=== PATIENT | male | born 1970 | race American Indian/Alaskan Native ===

== ENCOUNTER 2018-07-04 08:20 | Outpatient (CLI) | payer MEDICAID ==
[2018-07-04] MEDS ORDERED: XYLOCAINE TOPICAL 4% TP ONE (08:48)
[2018-07-04] MEDS ORDERED: XYLOCAINE TOPICAL 4% TP NR (09:00)
[2018-07-04] MEDS ORDERED: SILVER NITRATE TP ONE (09:30)
== END 2018-07-04 08:21 | disposition home or self-care (01) ==
LOC: WOUND 08:20
PROVIDERS: ATTEND Surgery
DX: E11.621 Type 2 diabetes mellitus with foot ulcer (principal); L97.522 Non-pressure chronic ulcer of other part of left foot with fat layer exposed; L84 Corns and callosities; E11.40 Type 2 diabetes mellitus with diabetic neuropathy, unspecified; E11.36 Type 2 diabetes mellitus with diabetic cataract; I10 Essential (primary) hypertension
CPT/HCPCS: 11042; G0463; 99204

== ENCOUNTER 2018-07-11 09:51 | Outpatient (CLI) | payer MEDICAID ==
[2018-07-11] MEDS ORDERED: XYLOCAINE TOPICAL 4% TP ONE (10:30)
[2018-07-11] MEDS ORDERED: SILVER NITRATE TP ONE (10:30)
== END 2018-07-11 09:52 | disposition home or self-care (01) ==
LOC: WOUND 09:51
PROVIDERS: ATTEND Surgery
DX: E11.621 Type 2 diabetes mellitus with foot ulcer (principal); L97.522 Non-pressure chronic ulcer of other part of left foot with fat layer exposed; L84 Corns and callosities; E11.40 Type 2 diabetes mellitus with diabetic neuropathy, unspecified; E11.36 Type 2 diabetes mellitus with diabetic cataract; I10 Essential (primary) hypertension

== ENCOUNTER 2018-07-18 09:22 | Outpatient (CLI) | payer MEDICAID ==
[2018-07-18] MEDS ORDERED: SILVER NITRATE TP ONE (10:00)
== END 2018-07-18 09:23 | disposition home or self-care (01) ==
LOC: WOUND 09:22
PROVIDERS: ATTEND Surgery
DX: E11.621 Type 2 diabetes mellitus with foot ulcer (principal); L97.522 Non-pressure chronic ulcer of other part of left foot with fat layer exposed; E11.40 Type 2 diabetes mellitus with diabetic neuropathy, unspecified; E11.36 Type 2 diabetes mellitus with diabetic cataract; I10 Essential (primary) hypertension; L84 Corns and callosities
CPT/HCPCS: 97597

== ENCOUNTER 2018-07-28 09:44 | Outpatient (CLI) | payer MEDICAID ==
--- NOTE | 2018-07-28 12:35 | Ultrasound Report ---
ULTRASOUND ABDOMEN COMPLETE: TECHNIQUE: Transabdominal ultrasound with color Doppler interrogation. HISTORY: Left flank pain. COMPARISON: none. FINDINGS: LIVER: The liver parenchyma is echogenic suggesting mild diffuse fatty infiltration. No enlargement or focal mass. BILIARY SYSTEM: There are multiple shadowing gallstones in the gallbladder. No evidence for biliary dilatation or inflammation. The CBD measures 3 mm. PANCREAS: Normal. SPLEEN: Normal. KIDNEYS: Normal. No evidence for nephrolithiasis or hydronephrosis. AORTA/IVC: Obscured by bowel gas. ASCITES: None. IMPRESSION: Fatty infiltration of the liver. Cholelithiasis but no evidence for acute cholecystitis. No clear explanation for left flank pain.
== END 2018-07-28 09:45 | disposition home or self-care (01) ==
LOC: US 09:44
PROVIDERS: ATTEND Internal Medicine
DX: K76.0 Fatty (change of) liver, not elsewhere classified (principal); K80.20 Calculus of gallbladder without cholecystitis without obstruction; E11.49 Type 2 diabetes mellitus with other diabetic neurological complication
CPT/HCPCS: 76700